=== PATIENT | male | born 1950 | race Caucasian/White ===

== ENCOUNTER 2020-03-27 17:44 | Inpatient (IN) | payer OTHER ==
[~2020-03-27] VITALS: Ht 182.9 cm; Wt 114.5 kg
[~2020-03-27 17:44] MED LIST: ADULT LOW DOSE81 MG PO; AZOPT10 ML; BETIMOL5 M1; BRIMONIDINE TART5 M1; CARVEDILOL6.25 M1 PO; DULOXETINE HYDR30 MG PO; ENTRESTO1 TAB PO; EUTHYROX25 MCG PO; FINASTERIDE1 MG PO; INS7030 SC; LASIX20 MG PO; LATANOPROST2.5 ML OP; NITROGLYCERIN0.4 MG SL; PANTOPRAZOLE SO20 M1 PO; RITE AID GLUCOSE4 GM PO; ROSUVASTATIN CA40 MG PO; TERAZOSIN HCL5 MG PO
[2020-03-27 18:55] LABS: BASOPHIL % 0.9 % (0.2-1.5); PLATELET COUNT 135 x10^3mcL (152-348)
[2020-03-27 18:59] LABS: CARBON DIOXIDE 26.5 mmol/L (21-32); CHLORIDE SERUM 103 mmol/L (98-107); CREATININE SERUM 1.2 mg/dL (0.7-1.3); GLUCOSE SERUM 122 mg/dL (74-106); POTASSIUM SERUM 4.2 mmol/L (3.5-5.1); RED CELL DISTRIBUTION WIDTH 16.4 % (12.1-16.2); SODIUM SERUM 136 mmol/L (136-145)
[2020-03-27 19:09] LABS: ALBUMIN 3.1 g/dL (3.4-5.0); ALKALINE PHOSPHATASE 50 U/L (46-116); ALT/SGPT 16 U/L (16-63); AST/SGOT 16 U/L (15-37); BILIRUBIN TOTAL 0.7 mg/dL (0.20-1.00); C REACTIVE PROTEIN 11.1 mg/dL (<=0.9); TOTAL PROTEIN, SERUM 7.3 g/dL (6.4-8.2)
[2020-03-27 19:12] LABS: T3 TOTAL 0.91 ng/mL
[2020-03-27 19:25] LABS: CK-MB 0.5 ng/mL (0-3.6)
[2020-03-27 20:13] LABS: ERYTHROCYTE SED RATE 54 mm/hr (0-20)
[2020-03-27 20:23] LABS: FREE T4 1.04 ng/dL (0.76-1.46); FREE THYROXINE INDEX 1.9 ug/dL (1.4-4.5)
[2020-03-27 20:30] VITALS: BP 113/63
[2020-03-27 20:34] LABS: UA SPECIFIC GRAVITY >=1.030 (1.005-1.035); microscopic required? YES; urine erythrocyte NEGATIVE (NEGATIVE)
[2020-03-27 21:00] LABS: MAGNESIUM 2.3 mg/dL (1.8-2.4)
[2020-03-27 21:01] LABS: CHOLESTEROL/HDL RATIO 2.8
[2020-03-27 22:12] VITALS: BP 103/58
[2020-03-27 22:23] VITALS: Ht 182.9 cm; Wt 114.5 kg
[2020-03-28 05:41] VITALS: BP 131/59
[2020-03-28 08:12] VITALS: BP 116/69
[2020-03-28 11:57] VITALS: BP 102/51
[2020-03-28 17:23] VITALS: BP 105/60
[2020-03-28 18:25] LABS: CARBON DIOXIDE 26.7 mmol/L (21-32); CHLORIDE SERUM 103 mmol/L (98-107); CREATININE SERUM 1.3 mg/dL (0.7-1.3); GLUCOSE SERUM 175 mg/dL (74-106); POTASSIUM SERUM 4.6 mmol/L (3.5-5.1); SODIUM SERUM 135 mmol/L (136-145)
[2020-03-28 20:17] VITALS: BP 115/71
[2020-03-28 20:50] VITALS: BP 115/71
[2020-03-29 14:41] LABS: BASOPHIL % 0.2 % (0-2); RED CELL DISTRIBUTION WIDTH 16.3 % (11.5-14.5)
[2020-03-29 14:42] LABS: PLATELET COUNT 127 x10^3mcL (130-400)
== END 2020-03-28 23:47 | DRG 208 ==
LOC: ED 17:44 → DU 19:36
PROVIDERS: Specialist; ADMIT Internal Medicine; ATTEND Internal Medicine
PROC: 0W9G3ZZ Drainage of Peritoneal Cavity, Percutaneous Approach (ICD-10-PCS; 2020-03-27)
PROC: 5A1935Z Respiratory Ventilation, Less than 24 Consecutive Hours (ICD-10-PCS; principal; 2020-03-28)
PROC: 0BH17EZ Insertion of Endotracheal Airway into Trachea, Via Natural or Artificial Opening (ICD-10-PCS; 2020-03-28)
PROC: 5A12012 Performance of Cardiac Output, Single, Manual (ICD-10-PCS; 2020-03-28)
DX: J96.01 Acute respiratory failure with hypoxia (principal); J18.9 Pneumonia, unspecified organism; I42.9 Cardiomyopathy, unspecified; J44.0 Chronic obstructive pulmonary disease with (acute) lower respiratory infection; Z20.822 Contact with and (suspected) exposure to COVID-19; I11.0 Hypertensive heart disease with heart failure; E78.00 Pure hypercholesterolemia, unspecified; E11.9 Type 2 diabetes mellitus without complications; I46.9 Cardiac arrest, cause unspecified; I50.9 Heart failure, unspecified; K21.9 Gastro-esophageal reflux disease without esophagitis; E78.5 Hyperlipidemia, unspecified; N40.0 Benign prostatic hyperplasia without lower urinary tract symptoms; E03.9 Hypothyroidism, unspecified; I25.10 Atherosclerotic heart disease of native coronary artery without angina pectoris; Z95.810 Presence of automatic (implantable) cardiac defibrillator; Z91.041 Radiographic dye allergy status; Z87.891 Personal history of nicotine dependence; Z79.899 Other long term (current) drug therapy
CPT/HCPCS: 36600; 82962; 83880; 84439; C9113; G0378; J0456; J0696; J1815; J1940; J7040; J7050; J7060; U0003